=== PATIENT | male | born 1955 | race African-American/Black ===

== ENCOUNTER 2019-04-08 01:31 | Emergency (ER) | payer MEDICARE ==
--- NOTE | 2019-04-08 01:35 | ER Report ---
History and Physical Time Seen By MD: 01:31 HPI/ROS CHIEF COMPLAINT: Difficulty breathing, vomiting HISTORY OF PRESENT ILLNESS: 63-year-old male with a history of COPD, not O2 dependent from [place] here in [place] for 2 weeks. He has a gas smell in his apartment which she describes as a bad odor. It does not is smell like exhaust or fumes. Patient denies headache. He woke up and vomited at 1 AM. He notes some labored breathing. He's not had any trouble with his COPD for one year. She denies chest pain. He denies leg swelling. He denies recent infectious symptoms. Patient appears to have paranoid ideation. He describes occult following him from [place] to [place] to [facility]. Patient thinks his landlord might be poisoning him. REVIEW OF SYSTEMS: Respiratory: As above Cardiovascular: No chest pain, no palpitations. Gastrointestinal: As above Musculoskeletal: No back pain. Allergies: Coded Allergies: cephalexin (Verified Adverse Reaction, Unknown, SICK TO STOMACH, 04/08/19) Home Meds Active Scripts Prednisone (PREDNISONE) 20 Mg Tablet, 20 MG PO QDAY for reduce lung inflammation, #5 Prov:CUAUHTEMOC MONREAL DO 04/08/19 Past Medical/Surgical History Metastatic prostate cancer to bone, colon cancer,? Paranoid schizophrenia Reviewed Nurses Notes: Yes Old Medical Records Reviewed: Yes Constitutional Vital Sign - Last 24 Hours 04/08/19 04/08/19 04/08/19 04/08/19 01:31 01:39 01:39 02:00 Temp 98.2 Pulse ??? 112 Resp 18 B/P (MAP) 126/74 (91) 126/74 122/70 (87) Pulse Ox 97 O2 Delivery Room Air 04/08/19 04/08/19 04/08/19 04/08/19 02:01 02:10 02:10 02:17 Pulse 97 72 80 Resp 17 16 16 Pulse Ox 98 96 O2 Delivery Room Air 04/08/19 04/08/19 02:30 02:31 Pulse 91 Resp 19 B/P (MAP) 123/67 (85) Pulse Ox 92 Physical Exam General Appearance: The patient is alert, has no immediate need for airway protection and no current signs of toxicity. Vital signs stable, afebrile, pulse ox normal HEENT: Pupils equal and round no injection. TMs normal, oropharynx without r edness or exudate Respiratory: Chest is non tender, lungs are clear to auscultation. No wheezing or rails Cardiac: regular rate and rhythm Gastrointestinal: Abdomen is soft and non tender, no masses, bowel sounds normal. Musculoskeletal: Neck: Neck is supple and non tender. Extremities have full range of motion and are non tender. 2+ chronic edema bilaterally Skin: No rashes or lesions. DIFFERENTIAL DIAGNOSIS: After history and physical exam differential diagnosis was considered for shortness of breath including but not limited to pulmonary infectious process, COPD, asthma, pulmonary embolus and congestive heart failure. Medical Decision Making Data Points Result Diagram: 04/08/19 0154 04/08/19 0154 Laboratory Hematology Test 04/08/19 01:54 White Blood Count 4.9 k/uL (4.5-11.0) Red Blood Count 4.60 M/uL (4.00-5.60) Hemoglobin 13.4 g/dL (14.0-18.0) L Hematocrit 40.2 % (42.0-52.0) L Mean Corpuscular Volume 87.5 fL (80.0-96.0) Mean Corpuscular Hemoglobin 29.1 pg (26.0-33.0) Mean Corpuscular Hemoglobin Concent 33.2 g/dL (32.0-36.0) Red Cell Distribution Width 16.4 % (11.5-14.5) H Platelet Count 233 K/uL (150-450) Mean Platelet Volume 8.7 fL (7.2-11.1) Neutrophils (%) (Auto) 57.7 % (39.4-72.5) Lymphocytes (%) (Auto) 26.7 % (17.6-49.6) Monocytes (%) (Auto) 11.0 % (4.1-12.4) Eosinophils (%) (Auto) 3.3 % (0.4-6.7) Basophils (%) (Auto) 1.3 % (0.3-1.4) Nucleated RBC Relative Count (auto) 0.0 /100WBC Neutrophils # (Auto) 2.8 K/uL (2.0-7.4) Lymphocytes # (Auto) 1.3 K/uL (1.3-3.6) Monocytes # (Auto) 0.5 K/uL (0.3-1.0) Eosinophils # (Auto) 0.2 K/uL (0.0-0.5) Basophils # (Auto) 0.1 K/uL (0.0-0.1) Nucleated RBC Absolute Count (auto) 0.00 K/uL Chemistry Test 04/08/19 01:54 Sodium Level 138 mmol/L (137-145) Potassium Level 3.9 mmol/L (3.5-5.0) Chloride Level 103 mmol/L (98-107) Carbon Dioxide Level 24 mmol/L (22-30) Blood Urea Nitrogen 16 mg/dl (9-21) Creatinine 1.00 mg/dl (0.66-1.25) Glomerular Filtration Rate Calc > 60.0 Random Glucose 105 mg/dl (75-110) Calcium Level 9.1 mg/dl (8.4-10.2) Total Bilirubin 1.0 mg/dl (0.2-1.3) Aspartate Amino Transf (AST/SGOT) 31 U/L (0-35) Alanine Aminotransferase (ALT/SGPT) 29 U/L (0-56) Alkaline Phosphatase 85 U/L (0-126) Troponin I < 0.012 ng/ml B-Type Natriuretic Peptide < 5 pg/ml (0-100) Total Protein 7.9 g/dl (6.3-8.2) Albumin 4.1 g/dl (3.5-5.0) Prostate Specific Antigen 44.80 ng/ml (0.0-4.0) EKG/Imaging EKG Interpretation 12 lead EK Rhythm: normal sinus rhythm [place]: normal QRS: normal ST segments: normal, no evidence of ischemia. No old EKGs for comparison Imaging X-ray: Single view chest x-ray was obtained. I viewed the images myself on the PACS system. My interpretation of the images is: No infiltrate, no effusion, normal mediastinum. The radiologist interpretation had no clinically significant variation from this interpretation. ED Course/Re-evaluation Clinical Indication for ER IV: IV Access ED Course Patient was admitted to an examination room. H&P was done. The differential diagnoses was considered. Patient complaining of shortness of breath, but has stable vital signs stable, pulse ox on room air. Patient notes he has labored breathing. He thinks he was poisoned. He has paranoid ideation. His appliances are electrical he could not be suffering carbon monoxide poisoning, but he would like a level checked anyways. Carbon monoxide level is 0. His chest x-ray is normal. His EKG and troponin are unremarkable. Patient reports he has a history of prostate cancer. His PSA was ordered. Patient's discharged without be drawn inhaler and prednisone 20 mg a day for 5 days. Decision to Disposition Date: Apr 08, 2019 Decision to Disposition Time: 02:19 Depart Departure Latest Vital Signs Vital Signs Date Time Temp Pulse Resp B/P (MAP) Pulse Ox O2 Delivery O2 Flow Rate FiO2 04/08/19 02:31 91 19 92 04/08/19 02:30 123/67 (85) 04/08/19 02:10 Room Air 04/08/19 01:39 98.2 Impression: Primary Impression: Dyspnea Additional Impressions: History of COPD Paranoid ideation Condition: Improved Disposition: HOME OR SELF-CARE Referrals: PAKO PACKER MD, FARRUKH MD New Scripts Prednisone (PREDNISONE) 20 Mg Tablet 20 MG PO QDAY for reduce lung inflammation, #5 Prov: CUAUHTEMOC MONREAL DO 04/08/19 Patient Instructions: COPD (Chronic Obstructive Pulmonary Disease) (ED) Additional Instructions: Follow-up with primary care in 2-4 days if unimproved Problem Qualifiers Primary Impression: Dyspnea Dyspnea type: unspecified Qualified Codes: R06.00 - Dyspnea, unspecified CUAUHTEMOC MONREAL DO Apr 08, 2019 01:35
[2019-04-08] MEDS ORDERED: ALBUTEROL/IPRATROPIUM 3 ML NEB NEB ONE (01:45)
[2019-04-08] MEDS ORDERED: methylPREDNIS SUCC 125 MG/2ML IVP ONE (01:45)
[2019-04-08 02:19] LABS: PLATELET COUNT, AUTOMATED 233 K/uL (150-450)
[2019-04-08 02:30] VITALS: BP 123/67
[2019-04-08] MEDS ORDERED: ALBUTEROL 8 GM INHALER INH ONE (02:50)
[2019-04-08] MEDS ORDERED: PRED20TA6 PO (02:51)
--- NOTE | 2019-04-08 03:24 | RADIOLOGY IMAGING REPORT ---
FACILITY: [facility] PATIENT NAME: Alex Shaw : 1955 MR: [id number] V: [id number] EXAM DATE: ORDERING PHYSICIAN: CUAUHTEMOC MONREAL TECHNOLOGIST: Location: [facility] Patient: Alex Shaw : 1955 Visit/Account:[id number] Date of Sevice: 04/08/2019 PORTABLE CHEST: Indication: Dyspnea. Technique: A single frontal film was obtained. Comparison: None available. Skeletal and soft tissue structures: Intact and unremarkable. Heart and mediastinum: Within normal limits. Lung gutiérrez: Well-expanded. There appear to be mild increased interstitial markings. No focal consoli dation or volume loss is identified. Pleural spaces: Unremarkable. Impression: No acute process. Report Dictated By: Virgilio Baer MD at 04/08/2019 3:11 AM Report E-Signed By: Virgilio Baer MD at 04/08/2019 3:12 AM [id number]
--- NOTE | 2019-04-08 05:13 | EKG ---
FACILITY: [facility] PATIENT NAME: JACKSON KERR : [id number] MR: [id number] V: [id number] EXAM DATE: ORDERING PHYSICIAN: CUAUHTEMOC MONREAL TECHNOLOGIST: MINA Brian Reason : DYSPNEA Blood Pressure : / mmHG Vent. Rate : 086 BPM Atrial Rate : 086 BPM P-R Int : 154 ms QRS Dur : 090 ms QT Int : 378 ms P-R-T Axes : 060 021 046 degrees QTc Int : 452 ms Sinus rhythm Probable left atrial enlargement No previous ECGs available Confirmed by EDELMIRA HUNT ([id number]) on 04/08/2019 6:35:45 AM Referred By: Confirmed By:EDELMIRA HUNT
== END 2019-04-08 03:10 | disposition home or self-care (01) ==
LOC: ER 01:49
DX: R06.00 Dyspnea, unspecified (principal); F23 Brief psychotic disorder; J44.9 Chronic obstructive pulmonary disease, unspecified
CPT/HCPCS: 71045; 82375; 83880; 84153; 84484; 85025; 93005; 94640; 96374; 99284; J2930; J7620; 82040; 82247; 82310; 82374; 82435; 82565; 82947; 84075; 84132; 84155; 84295; 84450; 84460; 84520

== ENCOUNTER 2019-04-10 23:39 | Emergency (ER) | payer MEDICARE ==
[~2019-04-10 23:39] MED LIST: PRED20TA6 PO
--- NOTE | 2019-04-10 23:41 | ER Report ---
History and Physical Time Seen By MD: 23:36 HPI/ROS CHIEF COMPLAINT: Left sided sharp chest pain HISTORY OF PRESENT ILLNESS: 63-year-old black male presents ambulatory to the ER complaining of chest pain since 9 AM yesterday. He points to a sharp pinpoint pain in his left sternal margin. He notes no changes with breathing. He denies shortness of breath. He was seen here 3 days ago and extensive evaluation which was unremarkable. He was discharged home on prednisone and albuterol for his COPD. She had a PSA done because of a history of prostate cancer which came back at 42. Patient has chronic leg swelling. Patient states she took numerous aspirin over the last 12 hours without relief of his pain. REVIEW OF SYSTEMS: Respiratory: No cough, no dyspnea. Cardiovascular: As above Gastrointestinal: No vomiting, no abdominal pain. Musculoskeletal: No back pain. Allergies: Coded Allergies: cephalexin (Verified Adverse Reaction, Unknown, SICK TO STOMACH, 04/08/19) Home Meds Active Scripts Prednisone (PREDNISONE) 20 Mg Tablet, 20 MG PO QDAY for reduce lung inflammation, #5 Prov:CUAUHTEMOC MONREAL DO 04/08/19 Past Medical/Surgical History COPD, metastatic prostate cancer,? Paranoid schizophrenia Reviewed Nurses Notes: Yes Old Medical Records Reviewed: Yes Constitutional Vital Sign - Last 24 Hours 04/10/19 23:42 Pulse 96 Resp 16 B/P (MAP) 122/68 Pulse Ox 96 O2 Delivery Room Air Physical Exam Vital signs stable, afebrile, pulse ox normal General Appearance: The patient is alert, has no immediate need for airway protection and no current signs of toxicity. Mild distress, skin warm, dry, pink HEENT: Pupils equal and round no injection. TMs normal, oropharynx without redness or exudate, mucous. Membranes are moist Respiratory: Chest is non tender, lungs are clear to auscultation. Pinpoint tenderness along the left sternal margin at approximately 4th intercostal space Cardiac: regular rate and rhythm, no murmur Gastrointestinal: Abdomen is soft and non tender, no masses, bowel sounds normal. Musculoskeletal: Neck: Neck is supple and non tender. have full range of motion and are non tender. Skin: No rashes or lesions. DIFFERENTIAL DIAGNOSIS: After history and physical exam differential diagnosis was considered for chest pain including but not limited to myocardial ischemia, pericarditis pulmonary embolus, chest wall pain, pleural inflammation and pulmonary infectious causes. Medical Decision Making Data Points Result Diagram: 04/11/19 0041 04/11/19 0013 Laboratory Hematology Test 04/11/19 00:41 White Blood Count 5.5 k/uL (4.5-11.0) Red Blood Count 4.11 M/uL (4.00-5.60) Hemoglobin 12.1 g/dL (14.0-18.0) L Hematocrit 35.7 % (42.0-52.0) L Mean Corpuscular Volume 86.8 fL (80.0-96.0) Mean Corpuscular Hemoglobin 29.5 pg (26.0-33.0) Mean Corpuscular Hemoglobin Concent 33.9 g/dL (32.0-36.0) Red Cell Distribution Width 16.4 % (11.5-14.5) H Platelet Count 200 K/uL (150-450) Mean Platelet Volume 8.4 fL (7.2-11.1) Neutrophils (%) (Auto) 56.1 % (39.4-72.5) Lymphocytes (%) (Auto) 27.4 % (17.6-49.6) Monocytes (%) (Auto) 13.1 % (4.1-12.4) H Eosinophils (%) (Auto) 2.5 % (0.4-6.7) Basophils (%) (Auto) 0.9 % (0.3-1.4) Nucleated RBC Relative Count (auto) 0.1 /100WBC Neutrophils # (Auto) 3.1 K/uL (2.0-7.4) Lymphocytes # (Auto) 1.5 K/uL (1.3-3.6) Monocytes # (Auto) 0.7 K/uL (0.3-1.0) Eosinophils # (Auto) 0.1 K/uL (0.0-0.5) Basophils # (Auto) 0.1 K/uL (0.0-0.1) Nucleated RBC Absolute Count (auto) 0.00 K/uL Chemistry Test 04/11/19 00:13 04/11/19 00:41 Sodium Level 141 mmol/L (137-145) Potassium Level 3.4 mmol/L (3.5-5.0) Chloride Level 106 mmol/L (98-107) Carbon Dioxide Level 27 mmol/L (22-30) Blood Urea Nitrogen 18 mg/dl (9-21) Creatinine 1.10 mg/dl (0.66-1.25) Glomerular Filtration Rate Calc > 60.0 Random Glucose 89 mg/dl (75-110) Calcium Level 8.8 mg/dl (8.4-10.2) Total Bilirubin 1.2 mg/dl (0.2-1.3) Aspartate Amino Transf (AST/SGOT) 29 U/L (0-35) Alanine Aminotransferase (ALT/SGPT) 27 U/L (0-56) Alkaline Phosphatase 81 U/L (0-126) Troponin I < 0.012 ng/ml Total Protein 7.9 g/dl (6.3-8.2) Albumin 4.0 g/dl (3.5-5.0) B-Type Natriuretic Peptide < 5 pg/ml (0-100) Coagulation Test 04/11/19 00:13 D-Dimer Quantitative (PE/DVT) 0.44 ug/ml (0-0.50) EKG/Imaging EKG Interpretation 12 lead EK Rhythm: normal sinus rhythm [place]: normal QRS: normal ST segments: normal, comparison to previous EKG dated 04/08/19, no significant change [ ] ED Course/Re-evaluation ED Course Patient was admitted to an examination room. H&P was done. The differential diagnoses was considered. Patient's EKG is showing no evidence of ischemia is unchanged compared to his previous EKG. Diagnostic studies were drawn. His d- dimer and troponin, BNP and laboratory studies were unremarkable. Patient has no chest pain. He was not treated with anything. He is advised to take Tylenol with his aspirin. Patient's advised to follow-up with primary care. I still think the patient has paranoid ideation and schizophrenia. I think his compla int tonight was primarily mental health related. Decision to Disposition Date: Apr 11, 2019 Decision to Disposition Time: 01:19 Depart Departure Latest Vital Signs Vital Signs Date Time Temp Pulse Resp B/P (MAP) Pulse Ox O2 Delivery O2 Flow Rate FiO2 04/10/19 23:42 96 16 122/68 96 Room Air Impression: Primary Impression: Chest pain Additional Impression: History of prostate cancer Condition: Improved Disposition: HOME OR SELF-CARE Referrals: PAKO PACKER MD Patient Instructions: Chest Wall Pain (ED) Additional Instructions: Use Tylenol and aspirin for pain relief Apply warm compresses Follow-up with Dr. Llanos or Jean if unimproved in 3-5 days Problem Qualifiers Primary Impression: Chest pain Chest pain type: unspecified Qualified Codes: R07.9 - Chest pain, unspecified CUAUHTEMOC MONREAL DO Apr 10, 2019 23:41
[2019-04-10] MEDS ORDERED: ASPIRIN 81 MG CHEW PO ONE (23:45)
--- NOTE | 2019-04-11 00:01 | EKG ---
FACILITY: [facility] [place] PATIENT NAME: JACKSON KERR : [id number] MR: [id number] V: [id number] EXAM DATE: ORDERING PHYSICIAN: CUAUHTEMOC MONREAL TECHNOLOGIST: HC Test Reason : CP Blood Pressure : / mmHG Vent. Rate : 087 BPM Atrial Rate : 087 BPM P-R Int : 144 ms QRS Dur : 088 ms QT Int : 368 ms P-R-T Axes : 067 031 062 degrees QTc Int : 442 ms Sinus rhythm Probable left atrial enlargement Similar to previous EKG Confirmed by EDELMIRA HUNT ([id number]) on 04/11/2019 6:19:37 AM Referred By: JOCELIN Confirmed By:EDELMIRA HUNT
[2019-04-11 01:00] LABS: PLATELET COUNT, AUTOMATED 200 K/uL (150-450)
[2019-04-11 02:12] VITALS: BP 106/55
== END 2019-04-11 02:12 | disposition home or self-care (01) ==
LOC: ER 23:43
DX: R07.9 Chest pain, unspecified (principal); Z85.46 Personal history of malignant neoplasm of prostate
CPT/HCPCS: 36415; 82040; 82247; 82310; 82374; 82435; 82565; 82947; 83880; 84075; 84132; 84155; 84295; 84450; 84460; 84484; 84520; 85025; 85379; 93005; 99283

== ENCOUNTER 2019-04-15 22:37 | Emergency (ER) | payer MEDICARE ==
--- NOTE | 2019-04-15 22:38 | ER Report ---
History and Physical Time Seen By MD: 22:34 HPI/ROS CHIEF COMPLAINT: Chest pain, shortness of breath, vomiting HISTORY OF PRESENT ILLNESS: 63-year-old black male with a known history of metastatic prostate cancer and COPD who has recently moved to [facility] has been seen twice in the ER on 04/08 and 04/10 with extensive evaluation. His PSA was no norma to be 44. He's had extensive workup for chest pain with negative EKGs, troponins and d-dimer's. Tonight. Patient's complaining of REVIEW OF SYSTEMS: Respiratory: As above Cardiovascular: As above Gastrointestinal as above Musculoskeletal: No back pain. Allergies: Coded Allergies: cephalexin (Verified Adverse Reaction, Unknown, SICK TO STOMACH, 04/15/19) Home Meds Active Scripts Ondansetron 4 Mg Odt (ONDANSETRON 4 MG ODT) 4 Mg Tab.rapdis, 4 MG PO Q6H PRN for NAUSEA/VOMITING, #12 TAB Prov:EJT MONREALY Neva DO 04/16/19 Discontinued Scripts Prednisone (PREDNISONE) 20 Mg Tablet, 20 MG PO QDAY for reduce lung inflammati on, #5 Prov:CUAUHTEMOC MONREAL DO 04/08/19 Reviewed Nurses Notes: Yes Old Medical Records Reviewed: Yes Constitutional Vital Sign - Last 24 Hours 04/15/19 04/15/19 04/15/19 04/15/19 22:40 22:41 22:52 23:07 Temp 98.6 Pulse 100 94 94 Resp 14 20 21 B/P (MAP) 124/79 (94) 124/79 Pulse Ox 95 93 92 O2 Delivery Room Air 04/15/19 04/15/19 04/15/19 04/15/19 23:21 23:22 23:27 23:30 Pulse 98 Resp 15 B/P (MAP) 127/70 (89) 119/63 (81) 109/63 (78) 04/15/19 04/15/19 04/15/19 04/16/19 23:37 23:52 23:57 00:00 Pulse 100 98 ??? Resp 20 17 B/P (MAP) ???/??? (8165) Pulse Ox 89 89 04/16/19 04/16/19 04/16/19 04/16/19 00:17 00:19 00:27 00:30 Pulse ??? B/P (MAP) 137/80 (99) 133/77 (95) O2 Flow Rate 2.0 04/16/19 04/16/19 04/16/19 04/16/19 00:42 00:57 01:00 01:12 Pulse 79 86 88 B/P (MAP) 122/84 (97) Pulse Ox 97 97 93 04/16/19 04/16/19 04/16/19 04/16/19 01:17 01:30 01:32 01:47 Pulse 87 77 89 B/P (MAP) 133/82 (99) Pulse Ox 96 99 99 04/16/19 04/16/19 02:00 02:02 Pulse ??? B/P (MAP) 131/87 (102) Pulse Ox 96 Physical Exam General Appearance: The patient is alert, has no immediate need for airway protection and no current signs of toxicity. Vital signs stable, afebrile, pulse ox normal HEENT: Pupils equal and round no injection. Oropharynx without redness or exudate, mucous. Membranes are moist Respiratory: Chest is non tender, lungs are clear to auscultation. Positive chest wall tenderness left pectoralis muscle region Cardiac: regular rate and rhythm, no murmur Gastrointestinal: Abdomen is soft and non tender, no masses, bowel sounds normal. Musculoskeletal: Neck: Neck is supple and non tender. Extremities have full range of motion and are non tender. Skin: No rashes or lesions. DIFFERENTIAL DIAGNOSIS: After history and physical exam differential diagnosis was considered for chest pain including but not limited to myocardial ischemia, pericarditis pulmonary embolus, chest wall pain, pleural inflammation and pulmonary infectious causes. Prostate Metastasis Medical Decision Making Data Points Result Diagram: 04/15/19 2325 04/15/19 2325 Laboratory Hematology Test 04/15/19 23:25 White Blood Count 5.5 k/uL (4.5-11.0) Red Blood Count 4.42 M/uL (4.00-5.60) Hemoglobin 12.8 g/dL (14.0-18.0) L Hematocrit 38.9 % (42.0-52.0) L Mean Corpuscular Volume 88.1 fL (80.0-96.0) Mean Corpuscular Hemoglobin 28.8 pg (26.0-33.0) Mean Corpuscular Hemoglobin Concent 32.8 g/dL (32.0-36.0) Red Cell Distribution Width 16.3 % (11.5-14.5) H Platelet Count 238 K/uL (150-450) Mean Platelet Volume 8.4 fL (7.2-11.1) Neutrophils (%) (Auto) 70.5 % (39.4-72.5) Lymphocytes (%) (Auto) 9.9 % (17.6-49.6) L Monocytes (%) (Auto) 9.8 % (4.1-12.4) Eosinophils (%) (Auto) 3.5 % (0.4-6.7) Basophils (%) (Auto) 6.3 % (0.3-1.4) H Nucleated RBC Relative Count (auto) 0.0 /100WBC Neutrophils # (Auto) 3.8 K/uL (2.0-7.4) Lymphocytes # (Auto) 0.5 K/uL (1.3-3.6) L Monocytes # (Auto) 0.5 K/uL (0.3-1.0) Eosinophils # (Auto) 0.2 K/uL (0.0-0.5) Basophils # (Auto) 0.3 K/uL (0.0-0.1) H Nucleated RBC Absolute Count (auto) 0.00 K/uL Peripheral Blood Smear Yes Y/N Chemistry Test 04/15/19 23:25 Sodium Level 138 mmol/L (137-145) Potassium Level 3.4 mmol/L (3.5-5.0) Chloride Level 103 mmol/L (98-107) Carbon Dioxide Level 27 mmol/L (22-30) Blood Urea Nitrogen 18 mg/dl (9-21) Creatinine 1.30 mg/dl (0.66-1.25) Glomerular Filtration Rate Calc 55.4 Random Glucose 88 mg/dl (75-110) Calcium Level 9.0 mg/dl (8.4-10.2) Total Bilirubin 0.5 mg/dl (0.2-1.3) Aspartate Amino Transf (AST/SGOT) 23 U/L (0-35) Alanine Aminotransferase (ALT/SGPT) 33 U/L (0-56) Alkaline Phosphatase 86 U/L (0-126) Troponin I < 0.012 ng/ml B-Type Natriuretic Peptide 5 pg/ml (0-100) Total Protein 7.3 g/dl (6.3-8.2) Albumin 3.6 g/dl (3.5-5.0) Amylase Level 60 U/L (0-110) Lipase 78 U/L (23-300) EKG/Imaging EKG Interpretation 12 lead EK Rhythm: normal sinus rhythm [place]: normal QRS: normal ST segments: normal, comparison to previous EKGs 04/08 and 04/10, no significant change come in. No evidence of ischemia Imaging Results: CT scan of the chest, abdomen and pelvis with IV contrast was obtained. The results of the study are COMPUTED TOMOGRAPHY CHEST, ABDOMEN AND PELVIS WITH INTRAVENOUS CONTRAST DATE OF EXAM: 04/15/2019 11:39 PM. INDICATION: Chest pain. History of metastatic prostate cancer. COMPARISON: Chest radiograph 04/08/2019. TECHNIQUE: Contrast enhanced chest, abdomen and pelvis CT performed during the injection of 75 ml of Isovue 370. Sagittal and coronal reconstructions were p erformed. One of the following dose optimization techniques was utilized in the performance of this exam: Automated exposure control; adjustment of the mA and/or kV according to the patient's size; or use of an iterative reconstruction technique. Specific details can be referenced in the facility's radiology CT exam operational policy. FINDINGS: CHEST: Thyroid: Normal. Thoracic inlet: No adenopathy. Heart and great vessels: Heart size is normal. No pericardial effusion. Mild coronary artery calcification. Nonaneurysmal aorta. Pulmonary arteries are unremarkable. Mediastinum and ramona: Nonacute. Lungs and pleura: No suspicious consolidation, pleural effusion or pneumot horax. Breast and axilla: Moderate gynecomastia. No axillary adenopathy. ABDOMEN AND PELVIS: Liver and hepatic vasculature: Normal. Gallbladder and bile ducts: Normal. Spleen: Normal. Small splenule inferiorly. Pancreas: Normal. Adrenals: Normal. Kidneys, ureters and bladder: 3.5 cm cyst in the midportion of the right kidney. No acute abnormality or suspicious lesion. Retroperitoneum and aorta: Nonaneurysmal aorta with mild atherosclerosis. No adenopathy. GI tract, mesentery and peritoneum: No evidence of obstruction. No pneumatosis, pneumoperitoneum or free fluid. Moderate sigmoid diverticulosis. Appendix is nonacute. Prostate and seminal vesicles: Prostate is unremarkable. The right seminal vesicle is larger than left. Bones and soft tissues: Incompletely imaged peripherally sclerotic lesion in the left femoral diaphysis. Small bilateral fat-containing inguinal hernias. No acute abnormality. IMPRESSION: 1. No apparent acute abnormality of the chest, abdomen and pelvis. 2. Mild coronary artery calcification. 3. Moderate sigmoid diverticulosis. 4. Right seminal vesicle is larger than the left. This is of uncertain signifi cance. 5. Incompletely imaged peripherally sclerotic lesion in the left femoral diaphysis. Recommend correlation with history and prior imaging. The study was read by the radiologist. I viewed the images myself on the PACS system. ED Course/Re-evaluation Clinical Indication for ER IV: IV Access ED Course Patient was admitted to an examination room. H&P was done. The differential diagnoses was considered. Patient with left upper pectoralis chest pain. Patient took aspirin at home without improvement. Since been seen twice in the emergency department for evaluations for chest pain and discomfort. His studies have been negative. On the 2 previous visits. He was advised to follow-up with primary care, which she has an appointment this week. He states. Patient continues to have chest discomfort unrelieved with aspirin. Last time a GI cocktail seemed to help. Patient has history of metastatic prostate cancer. Patient's pains continue to persist. A CT scan of the chest, abdomen and pelvis was performed to rule out other occult pathology and metastasis. The CAT scan was relatively unremarkable. There was metastasis to a femoral bone. Patient does have an enlarged prostate. His PSA returned at 44 and a previous ER visit. Patient's advised to follow-up with primary care. He is advised to take one all for additional pain relief with his aspirin. Zofran was prescribed to control his nausea and vomiting. I am suspicious. Maria Elena's episode is likely food poisoning. Since his stomach is quite distended with food matter. Decision to Disposition Date: Apr 16, 2019 Decision to Disposition Time: 01:29 Depart Departure Latest Vital Signs Vital Signs Date Time Temp Pulse Resp B/P (MAP) Pulse Ox O2 Delivery O2 Flow Rate FiO2 04/16/19 02:02 ??? 96 04/16/19 02:00 131/87 (102) 04/16/19 00:19 2.0 04/15/19 23:52 17 04/15/19 22:41 98.6 Room Air Impression: Primary Impression: Chest pain Additional Impressions: Vomiting History of prostate cancer Condition: Improved Disposition: HOME OR SELF-CARE Referrals: PAKO PACKER MD, FARRUKH MD New Scripts Ondansetron 4 Mg Odt (ONDANSETRON 4 MG ODT) 4 Mg Tab.rapdis 4 MG PO Q6H PRN for NAUSEA/VOMITING, #12 TAB Prov: CUAUHTEMOC MONREAL DO 04/16/19 Patient Instructions: Acute Nausea and Vomiting (ED), Chest Pain (ED), Clear Liquid Diet (ED) Additional Instructions: Follow-up with or [place] next week Follow clear liquid diet for 24 hours, then advance into the brat diet, bananas, rice, applesauce and toast Problem Qualifiers Primary Impression: Chest pain Chest pain type: unspecified Qualified Codes: R07.9 - Chest pain, unspecified Additional Impressions: Vomiting Vomiting type: unspecified Vomiting Intractability: unspecified Nausea presence: unspecified Qualified Codes: R11.10 - Vomiting, unspecified CUAUHTEMOC MONREAL DO Apr 15, 2019 22:38
[2019-04-15] MEDS ORDERED: ONDANSETRON 4 MG/2 ML VIAL IVP ONE (22:45)
[2019-04-15] MEDS ORDERED: ASPIRIN 81 MG CHEW PO ONE (22:45)
--- NOTE | 2019-04-15 23:01 | EKG ---
FACILITY: [facility] PATIENT NAME: JACKSON KERR : [id number] MR: [id number] V: [id number] EXAM DATE: ORDERING PHYSICIAN: CUAUHTEMOC MONREAL TECHNOLOGIST: MICHAEL Test Reason : CP Blood Pressure : / mmHG Vent. Rate : 086 BPM Atrial Rate : 086 BPM P-R Int : 158 ms QRS Dur : 088 ms QT Int : 370 ms P-R-T Axes : 056 020 057 degrees QTc Int : 442 ms Normal sinus rhythm Normal ECG When compared with ECG of 10-APR-2019 23:45, Unchanged Confirmed by CHAVEZ ACOSTA ([id number]) on 04/16/2019 6:52:35 AM Referred By: Confirmed By:CHAVEZ ACOSTA
[2019-04-15 23:39] LABS: PLATELET COUNT, AUTOMATED 238 K/uL (150-450)
[2019-04-15] MEDS ORDERED: IOPAMIDOL 76% 100 ML INFUS BTL 100 ML ONE (23:51)
--- NOTE | 2019-04-16 01:02 | RADIOLOGY IMAGING REPORT ---
FACILITY: [facility] PATIENT NAME: Alex Shaw : 1955 MR: [id number] V: [id number] EXAM DATE: [id number] ORDERING PHYSICIAN: CUAUHTEMOC MONREAL TECHNOLOGIST: Location: [facility] [place] Patient: Alex Shaw : 1955 Visit/Account:[id number] Date of Sevice: 04/15/2019 COMPUTED TOMOGRAPHY CHEST, ABDOMEN AND PELVIS WITH INTRAVENOUS CONTRAST DATE OF EXAM: 04/15/2019 11:39 PM. INDICATION: Chest pain. History of metastatic prostate cancer. COMPARISON: Chest radiograph 04/08/2019. TECHNIQUE: Contrast enhanced chest, abdomen and pelvis CT performed during the injection of 75 ml of Isovue 370. Sagittal and coronal reconstructions were performed. One of the following dose optimiza tion techniques was utilized in the performance of this exam: Automated exposure control; adjustment of the mA and/or kV according to the patient's size; or use of an iterative reconstruction technique . Specific details can be referenced in the facility's radiology CT exam operational policy. FINDINGS: CHEST: Thyroid: Normal. Thoracic inlet: No adenopathy. Heart and great vessels: Heart size is normal. No pericardial effusion. Mild coronary artery calci fication. Nonaneurysmal aorta. Pulmonary arteries are unremarkable. Mediastinum and ramona: Nonacute. Lungs and pleura: No suspicious consolidation, pleural effusion or pneumothorax. Breast and axilla: Moderate gynecomastia. No axillary adenopathy. ABDOMEN AND PELVIS: Liver and hepatic vasculature: Normal. Gallbladder and bile ducts: Normal. Spleen: Normal. Small splenule inferiorly. Pancreas: Normal. Adrenals: Normal. Kidneys, ureters and bladder: 3.5 cm cyst in the midportion of the right kidney. No acute abnormali ty or suspicious lesion. Retroperitoneum and aorta: Nonaneurysmal aorta with mild atherosclerosis. No adenopathy. GI tract, mesentery and peritoneum: No evidence of obstruction. No pneumatosis, pneumoperitoneum or free fluid. Moderate sigmoid diverticulosis. Appendix is nonacute. Prostate and seminal vesicles: Prostate is unremarkable. The right seminal vesicle is larger than le ft. Bones and soft tissues: Incompletely imaged peripherally sclerotic lesion in the left femoral diaphy sis. Small bilateral fat-containing inguinal hernias. No acute abnormality. IMPRESSION: 1. No apparent acute abnormality of the chest, abdomen and pelvis. 2. Mild coronary artery calcification. 3. Moderate sigmoid diverticulosis. 4. Right seminal vesicle is larger than the left. This is of uncertain significance. 5. Incompletely imaged peripherally sclerotic lesion in the left femoral diaphysis. Recommend corre lation with history and prior imaging. Report Dictated By: Franklin Ely MD at 04/16/2019 12:38 AM Report E-Signed By: Franklin Ely MD at 04/16/2019 12:53 AM WSN:[id number]
[2019-04-16] MEDS ORDERED: KETOROLAC 15 MG/ML VIAL IVP ONE (01:35)
[2019-04-16] MEDS ORDERED: ONDANSETRON 4 MG ODT TABDP SL ONE (01:35)
[2019-04-16] MEDS ORDERED: ONDANSETRON 4 MG ODT TH SL ONE (01:40)
[2019-04-16] MEDS ORDERED: ONDA4TAB9 PO (01:43)
[2019-04-16 02:00] VITALS: BP 131/87
== END 2019-04-16 02:01 | disposition home or self-care (01) ==
LOC: ER 23:02
DX: R07.9 Chest pain, unspecified (principal); R11.10 Vomiting, unspecified; Z85.46 Personal history of malignant neoplasm of prostate
CPT/HCPCS: 71260; 74177; 82150; 83690; 83880; 84484; 85025; 93005; 96374; 96375; 99284; A9270; J1885; J2405; Q0162; Q9967; 82040; 82247; 82310; 82374; 82435; 82565; 82947; 84075; 84132; 84155; 84295; 84450; 84460; 84520; S0119